=== PATIENT | male | born 1990 | race American Indian/Alaskan Native ===

== ENCOUNTER 2018-09-08 00:17 | Emergency (ER) | payer OTHER ==
[2018-09-08 00:26] VITALS: BP 132/75
--- NOTE | 2018-09-08 01:03 | XRay Report ---
RIGHT SHOULDER, 3 VIEWS, 09/08/2018 INDICATION / CLINICAL INFORMATION: fall. Right shoulder pain COMPARISON: None available. FINDINGS: No fracture or dislocation. The visualized right ribs are intact. No soft tissue abnormality. IMPRESSION: Negative exam. Signer Name: Jina Alfonso MD Signed: 09/07/2018 11:58 PM Workstation Name: [id number]
[2018-09-08] MEDS ORDERED: TYLENOL PO ONE (05:19)
[2018-09-08] MEDS ORDERED: IBUPROFEN PO ONE (05:19)
--- NOTE | 2018-09-08 06:01 | XRay Report ---
CERVICAL SPINE, 3 VIEWS, 09/08/2018 INDICATION / CLINICAL INFORMATION: MAIN: traumatic fall neck pain pain in right arm. COMPARISON: None available. FINDINGS: Vertebral body heights and disc spaces are well-preserved. Alignment is normal. No evidence for cervi juan spine fracture. No significant degenerative change. Visualized lung apices are clear. IMPRESSION: No evidence for fracture or malalignment. Signer Name: Jina Alfonso MD Signed: 09/08/2018 4:56 AM Workstation Name: [id number]
--- NOTE | 2018-09-08 06:02 | XRay Report ---
LUMBOSACRAL SPINE, 2 VIEWS, 09/08/2018 INDICATION / CLINICAL INFORMATION: MAIN: back pain, post fall. COMPARISON: None available. FINDINGS: Vertebral body heights and disc spaces are well preserved and appear unremarkable. Alignment is murphy l. No visible fracture. No significant degenerative change. IMPRESSION: No significant skeletal abnormality. Signer Name: Jina Alfonso MD Signed: 09/08/2018 4:57 AM Workstation Name: [id number]
--- NOTE | 2018-09-08 06:35 | Emergency Department Report ---
ED General Adult HPI - General Chief complaint: Shoulder Injury Stated complaint: WORK INJURY BACK NECK SHOULDER PAIN Time Seen by Provider: 09/08/18 04:50 Source: patient Mode of arrival: Ambulatory Limitations: No Limitations - History of Present Illness Initial comments: Patient is a 28-year-old -[place] male with no past medical history pres ents to the ED with complaint of acute onset of persistent severe right shoulder pain, neck pain and low back pain after he slipped off a ramp and fell down landing on his right shoulder and his back about 6 hours ago. The patient denies loss of consciousness, dizziness, syncope, headache, head injury, chest pain, shortness of breath, numbness and tingling of upper and lower extremities bilaterally, saddle paresthesia, urinary or bowel incontinence, or change in vision, hip pain, hematuria and abdominal pain. MD Complaint: right shoulder, neck and lower back pain -: Sudden, hour(s) (6) Location: neck, back (lower), upper extremity (right shoulder) Radiation: back, neck, extremity (right shoulder) Severity scale (0 -10): 3 Quality: aching, sharp, constant Consistency: constant Improves with: none Worsens with: movement Associated Symptoms: denies other symptoms. denies: confusion, chest pain, cough, diaphoresis, fever/chills, headaches, loss of appetite, malaise, nausea/vomiting, rash, seizure, shortness of breath, syncope, other Treatments Prior to Arrival: none - Related Data Previous Rx's Medication Instructions Recorded Last Taken Type Ibuprofen [Motrin] 800 mg PO Q8HR PRN #24 tablet 09/08/18 Unknown Rx tiZANidine [Zanaflex 4mg TAB] 4 mg PO Q8H PRN #21 tablet 09/08/18 Unknown Rx traMADol [Ultram] 50 mg PO Q6HR PRN #15 tablet 09/08/18 Unknown Rx Allergies Allergy/AdvReac Type Severity Reaction Status Date / Time No Known Allergies Allergy Verified 09/08/18 00:26 ED Review of Systems ROS: Stated complaint: WORK INJURY BACK NECK SHOULDER PAIN Other details as noted in HPI Constitutional: denies: chills, fever Eyes: denies: eye pain, eye discharge, vision change ENT: denies: ear pain, throat pain Respiratory: denies: cough, shortness of breath, wheezing Cardiovascular: denies: chest pain, palpitations Endocrine: no symptoms reported Gastrointestinal: denies: abdominal pain, nausea, diarrhea Genitourinary: denies: urgency, dysuria Musculoskeletal: back pain (lower), arthralgia (right shoulder and neck pain), myalgia. denies: joint swelling Skin: denies: rash, lesions Neurological: denies: headache, weakness, paresthesias Psychiatric: denies: anxiety, depression Hematological/Lymphatic: denies: easy bleeding, easy bruising ED Past Medical Hx - Past Medical History Previous Medical History?: No - Surgical History Past Surgical History?: No - Social History Smoking Status: Never Smoker Substance Use Type: None - Medications Home Medications: Home Medications Medication Instructions Recorded Confirmed Last Taken Type Ibuprofen [Motrin] 800 mg PO Q8HR PRN #24 tablet 09/08/18 Unknown Rx tiZANidine [Zanaflex 4mg TAB] 4 mg PO Q8H PRN #21 tablet 09/08/18 Unknown Rx traMADol [Ultram] 50 mg PO Q6HR PRN #15 tablet 09/08/18 Unknown Rx ED Physical Exam - General Limitations: No Limitations General appearance: alert, in no apparent distress - Head Head exam: Present: atraumatic, normocephalic, normal inspection - Eye Eye exam: Present: normal appearance, PERRL, EOMI. Absent: scleral icterus, conjunctival injection - ENT ENT exam: Present: normal exam, normal orophraynx, mucous membranes moist, TM's normal bilaterally, normal external ear exam - Neck Neck exam: Present: normal inspection, tenderness (palpable cervical paraspinal musculoskeletal tenderness), full ROM - Respiratory Respiratory exam: Present: normal lung sounds bilaterally. Absent: respiratory distress, wheezes, chest wall tenderness, accessory muscle use - Cardiovascular Cardiovascular Exam: Present: regular rate, normal rhythm, normal heart sounds. Absent: systolic murmur, diastolic murmur, rubs, gallop - GI/Abdominal GI/Abdominal exam: Present: soft, normal bowel sounds. Absent: tenderness, guarding, rebound, hyperactive bowel sounds, hypoactive bowel sounds, organomegaly, mass - Rectal Rectal exam: Present: deferred - Extremities Exam Extremities exam: Present: normal inspection, tenderness (right shoulder tenderness with limited ROM due to pain), normal capillary refill. Absent: pedal edema, joint swelling, calf tenderness - Back Exam Back exam: Present: normal inspection, tenderness (palpabl elumbosacral paraspinal musculoskeletal tenderness), muscle spasm, paraspinal tenderness (palpable lumbosacral paraspinal musculoskeletal tenderness) - Neurological Exam Neurological exam: Present: alert, oriented X3, CN II-XII intact, normal gait, reflexes normal - Psychiatric Psychiatric exam: Present: normal affect, normal mood - Skin Skin exam: Present: warm, dry, intact, normal color. Absent: rash ED Course Vital Signs 09/08/18 00:24 Temperature 98.6 F Pulse Rate 97 H Respiratory 18 Rate Blood Pressure 132/75 O2 Sat by Pulse 97 Oximetry - Reevaluation(s) Reevaluation #1: 09/08/18 06:37 The patient is alert and oriented 3 and is not in distress with normal vital signs. Right shoulder x-ray shows no acute fractures or dislocations or subluxations. C-spine x-ray shows no acute fractures or subluxations. L-spine x-ray shows no acute vertebral or spinal fractures or subluxations. Patient was treated for pain in the ED and the right shoulder was immobilized on a sling, a nd patient is sent home on pain medications and muscle relaxants and advised to follow up with his primary care physician in 5-7 days for reevaluation or return to the ED immediately if symptoms get worse. ED Medical Decision Making - Radiology Data Radiology results: report reviewed, image reviewed Right shoulder x-ray: No acute fractures or subluxations C- Spine x-ray: No acute cervical disc or spine fractures L-spine x-ray shows no acute fractures or subluxations - Medical Decision Making The patient is alert and oriented 3 and is not in distress with normal vital signs. Right shoulder x-ray shows no acute fractures or dislocations or subluxations. C-spine x-ray shows no acute fractures or subluxations. L-spine x-ray shows no acute vertebral or spinal fractures or subluxations. Patient was treated for pain in the ED and the right shoulder was immobilized on a sling, and patient is sent home on pain medications and muscle relaxants and advised to follow up with his primary care physician in 5-7 days for reevaluation or return to the ED immediately if symptoms get worse. - Differential Diagnosis right shoulder fracture; cervical sprain, muscle spasm of back Critical care attestation.: If time is entered above; I have spent that time in minutes in the direct care of this critically ill patient, excluding procedure time. ED Disposition Clinical Impression: Cervical paraspinous muscle spasm, Spasm of muscle of lower back Sprain of right shoulder girdle Qualifiers: Encounter type: initial encounter Qualified Code(s): S43.91XA - Sprain of unspecified parts of right shoulder girdle, initial encounter Disposition: TO HOME OR SELFCARE Is pt being admited?: No Does the pt Need Aspirin: No Condition: Stable Instructions: Shoulder Sprain (ED), Cervical Sprain (ED), Muscle Spasm (ED), Acute Low Back Pain (ED) Additional Instructions: Take medications with food, drink plenty of fluids and follow up with your primary care physician in 5-7 days for reevaluation. Return to the ED immediately if symptoms get worse. Prescriptions: Ibuprofen [Motrin] 800 mg PO Q8HR PRN #24 tablet PRN Reason: Pain , Severe (7-10) traMADol [Ultram] 50 mg PO Q6HR PRN #15 tablet PRN Reason: Pain tiZANidine [Zanaflex 4mg TAB] 4 mg PO Q8H PRN #21 tablet PRN Reason: Spasms Referrals: [facility] [Outside] - 3-5 Days Forms: Work/School Release Form(ED) Time of Disposition: 06:42 Print Language: MONEGASQUE
== END 2018-09-08 07:07 | disposition home or self-care (01) ==
LOC: ED 00:17
DX: S43.91XA Sprain of unspecified parts of right shoulder girdle, initial encounter (principal); M62.830 Muscle spasm of back; M54.2 Cervicalgia; Z79.899 Other long term (current) drug therapy; W01.0XXA Fall on same level from slipping, tripping and stumbling without subsequent striking against object, initial encounter; Y93.89 Activity, other specified; Y92.89 Other specified places as the place of occurrence of the external cause; Y99.8 Other external cause status
CPT/HCPCS: 72040; 72100; 99284